=== PATIENT | male | born 1975 | race Caucasian/White ===

== ENCOUNTER 2019-07-28 15:20 | Emergency (ER) | payer OTHER, SELFPAY ==
--- NOTE | ~2019-07-28 | XR_ITS ---
EXAMINATION: XR shoulder RT min 2V EXAM DATE: 07/28/2019 15:48 INDICATION: Initial encounter following injury, with pain of the right shoulder. TECHNIQUE: 2 orthogonal projections of the right shoulder. There is no prior study for comparison. FINDINGS: There are no acute right shoulder fractures or dislocations identified. There is no subcut aneous gas. The soft tissue is unremarkable. There are no radiopaque foreign bodies. IMPRESSION: 1. XR shoulder RT min 2V exam without acute osseous findings. Reviewed, dictated and finalized at location A.
[2019-07-28 15:36] VITALS: BP 150/83; PULSE 67; RESP 16; TEMP 36.9; O2SAT 99
--- NOTE | 2019-07-28 15:54 | ED.GENADULT ---
HPI - General Adult General Chief complaint: Extremity Injury, Upper Stated complaint: injury rght shoulder Time Seen by Provider: 07/28/19 15:38 Source: patient and RN notes reviewed Mode of arrival: ambulatory Limitations: no limitations History of Present Illness HPI narrative: 44-year-old male presents with complaints of right posterior shoulder pain for the past 6 hours. Nik says he was at work when a ladder (approximately 12 feet long and 8 feet wide) he placed on a hook fell and he reached out to grab it and heard a popping sound in his RT arm/shoulder. Denies numbness or tingling. Ibuprofen (800mg) twice since 09:30 this morning last dose approximately at 13:00 per Nik. Hurts with movement of shoulder and palpation. Denies radiating pain. No loss of mobility. No swelling. Exacerbating factor is movement and palpation. Relieving factor is rest and pain medication. The dominant hand is the RIGHT HAND. Remains active. Some parts of this dictation were generated by voice recognition software and may contain typographical and/or grammatical inaccuracies. Related Data Home Medications Medication Instructions Recorded Confirmed No Home Medications 07/28/19 07/28/19 Allergies Allergy/AdvReac Type Severity Reaction Status Date / Time No Known Allergies Allergy Verified 07/28/19 15:37 Review of Systems Review of Systems: Narrative: CONSTITUTIONAL: Denies fever, chills, sweats. EYES: Denies visual changes, redness, discharge. ENT: Denies rhinorrhea, congestion, sore throat, otalgia. CARDIOVASCULAR: Denies chest pain, palpitations, edema. RESPIRATORY: Denies dyspnea, wheezing, cough. GASTROINTESTINAL: Denies abdominal pain, nausea, vomiting, diarrhea. GENITOURINARY: Denies dysuria, hematuria, abnormal discharge. SKIN: Denies rash or itching. MUSCULOSKELETAL: Denies acute back pain or myalgia. Complains of RT posterior shoulder pain. NEUROLOGIC: Denies numbness or focal weakness. PSYCHIATRIC: Denies anxiety or depression. All other systems reviewed & are unremarkable except as noted in HPI and below. [facility] Past Medical History Medical History (Updated 07/28/19 @ 16:02 by RILEY Jett) No significant past medical history Surgical History Surgical History (Updated 07/28/19 @ 15:57 by RILEY Jett) Hx of appendectomy Family History Family History (Updated 07/28/19 @ 15:57 by RILEY Jett) Father Carcinoma of colon Social History Social History (Updated 07/28/19 @ 15:58 by RILEY Jett) Smoking status: Never smoker Second hand tobacco smoke exposure: Yes (spouse) Alcohol intake: current Substance use: never Living arrangements: with family Occupation/Education: occupation Gender identity (if verbalized by the patient): Male Comments At time of signature, agree with nurse past medical, surgical, social, and family history. There is no relevant family history pertinent to the presenting complaint. Exam Narrative: Exam Narrative: GENERAL: This is a well-nourished, well-developed patient, in no apparent distress. Talks in full sentences and ambulates with steady gait without dyspnea. HEAD: normocephalic, atraumatic. EYES: PERRL. Sclera clear/white. Vision is grossly intact. NECK: Neck supple, non-tender without lymphadenopathy, masses or thyromegaly. Trachea is midline. Skin intact, no swelling, no step offs, no deformity. Normal strength and sensation of UE and normal radial pulse. No enlarged nodes. No erythema. CARDIOVASCULAR: Regular rate and rhythm without murmurs, gallops, or rubs. RESPIRATORY: Clear to auscultation. Breath sounds equal bilaterally. No wheezes, rales, or rhonchi. GASTROINTESTINAL: Abdomen soft, non-tender, nondistended. Bowel sounds are active. No hepato-splenomegaly, or palpable masses. No guarding. SKIN: warm, intact with no suspicious lesions or rash, good texture and turgor. NEURO: awake, alert, and orie
== END 2019-07-28 16:11 | disposition home or self-care (01) ==
PROVIDERS: Emergency Provider Nurse Practitioner Family
DX: S43.401A Unspecified sprain of right shoulder joint, initial encounter (principal); X50.9XXA Other and unspecified overexertion or strenuous movements or postures, initial encounter
CPT/HCPCS: 73030; 99203; G0463